=== PATIENT | female | born 1945 | race Native Hawaiian/Other Pacific Islander ===

== ENCOUNTER 2016-10-10 08:27 | Outpatient (CLI) | payer OTHER ==
[~2016-10-10 08:27] MED LIST: ACID REDUCER150 MG PO; ASPIRIN ADULT L81 MG PO; HYZAAR1 TA1 PO; LEVO0.0218 PO; LEVO0.0529 PO
[2016-10-10 08:43] LABS: PLATELET COUNT 249 K/uL (152-353)
[2016-10-10 09:02] LABS: POTASSIUM 3.7 mmol/L (3.6-5.2)
== END 2016-10-10 19:58 | disposition home or self-care (01) ==
LOC: LABW 08:27
PROVIDERS: Nurse Practitioner
DX: K21.9 Gastro-esophageal reflux disease without esophagitis (principal); R53.83 Other fatigue; E03.8 Other specified hypothyroidism; E55.9 Vitamin D deficiency, unspecified
CPT/HCPCS: 36415; 80053; 80061; 84443; 85027

== ENCOUNTER 2017-03-10 07:58 | Outpatient (CLI) | payer OTHER ==
[2017-03-10 08:22] LABS: POTASSIUM 4.3 mmol/L (3.6-5.2)
== END 2017-03-10 19:08 | disposition home or self-care (01) ==
LOC: LABW 07:58
PROVIDERS: Internal Medicine Clinical Cardiac Electrophysiology
DX: I48.0 Paroxysmal atrial fibrillation (principal)
CPT/HCPCS: 36415; 80048

== ENCOUNTER 2017-05-19 08:16 | Outpatient (CLI) | payer OTHER ==
[2017-05-19 08:49] LABS: PLATELET COUNT 264 K/uL (152-353)
== END 2017-05-19 09:20 | disposition home or self-care (01) ==
LOC: LABW 08:16
PROVIDERS: Internal Medicine
DX: I10 Essential (primary) hypertension (principal); E03.8 Other specified hypothyroidism
CPT/HCPCS: 36415; 80053; 80061; 81000; 84439; 84443; 85027

== ENCOUNTER 2017-08-06 09:20 | Outpatient (CLI) | payer OTHER ==
[2017-08-06 09:48] LABS: PLATELET COUNT 269 K/uL (152-353)
[2017-08-06 09:55] LABS: POTASSIUM 4.2 mmol/L (3.6-5.2)
== END 2017-08-06 19:08 | disposition home or self-care (01) ==
LOC: LABW 09:20
PROVIDERS: Internal Medicine Nephrology
DX: N18.3 Chronic kidney disease, stage 3 (moderate) (principal); I12.9 Hypertensive chronic kidney disease with stage 1 through stage 4 chronic kidney disease, or unspecified chronic kidney disease; E03.9 Hypothyroidism, unspecified; N95.1 Menopausal and female climacteric states; K21.9 Gastro-esophageal reflux disease without esophagitis; M81.0 Age-related osteoporosis without current pathological fracture; G47.30 Sleep apnea, unspecified; I48.91 Unspecified atrial fibrillation
CPT/HCPCS: 36415; 80048; 82306; 83970; 84100; 85027

== ENCOUNTER 2017-08-17 11:36 | Outpatient (CLI) | payer OTHER | END 2017-08-17 12:40 | disposition home or self-care (01) | LOC: RAD 11:36 | DX: J40 Bronchitis, not specified as acute or chronic (principal); R68.83 Chills (without fever) ==

== ENCOUNTER 2017-09-22 09:15 | Outpatient (CLI) | payer OTHER | END 2017-09-22 19:03 | disposition home or self-care (01) | LOC: MAMMO 09:15 | DX: Z12.31 Encounter for screening mammogram for malignant neoplasm of breast (principal) ==

== ENCOUNTER 2017-11-07 20:32 | Emergency (ER) | payer OTHER ==
[~2017-11-07] VITALS: Ht 162.6 cm; Wt 90.7 kg
[2017-11-07 20:30] VITALS: TEMP 97.3
[2017-11-07 21:00] LABS: PLATELET COUNT 287 K/uL (152-353)
[2017-11-07] MEDS ORDERED: LEVO0.0723 PO (21:00)
[2017-11-07] MEDS ORDERED: HYZAAR1 TA1 PO (21:01)
[2017-11-07] MEDS ORDERED: ELIQUIS5 MG PO (21:02)
[2017-11-07] MEDS ORDERED: CARV12.5 PO (21:03)
[2017-11-07] MEDS ORDERED: PREVACID30 MG OR (21:03)
[2017-11-07] MEDS ORDERED: PANTOPRAZOLE 40MG TA PO (21:03)
[2017-11-07 21:36] LABS: PARTIAL THROMBOPLASTIN TIME 28.6 SECONDS (24.5-33.6)
[2017-11-07 23:58] VITALS: BP 129/80
== END 2017-11-08 00:06 | disposition home or self-care (01) ==
LOC: ED 20:32
DX: R07.89 Other chest pain (principal); I50.9 Heart failure, unspecified; Z98.890 Other specified postprocedural states; R00.0 Tachycardia, unspecified
CPT/HCPCS: 36415; 80053; 82550; 83880; 84484; 85027; 85610; 85730; 93005; 96365; 99284; J3490

== ENCOUNTER 2018-02-08 10:15 | Outpatient (CLI) | payer OTHER ==
[~2018-02-08 10:15] MED LIST changes: +CARV12.5 PO; +ELIQUIS5 MG PO; +LEVO0.0723 PO; +PANTOPRAZOLE 40MG TA PO; +PREVACID30 MG OR
[2018-02-08 11:15] LABS: PLATELET COUNT 253 K/uL (152-353)
[2018-02-08 11:26] LABS: POTASSIUM 4.1 mmol/L (3.6-5.2)
[2018-02-08 11:36] LABS: PARTIAL THROMBOPLASTIN TIME 27.5 SECONDS (24.5-33.6)
== END 2018-02-08 19:48 | disposition home or self-care (01) ==
LOC: LABW 10:15
PROVIDERS: Podiatrist
DX: Z01.810 Encounter for preprocedural cardiovascular examination (principal); Z01.811 Encounter for preprocedural respiratory examination; Z01.812 Encounter for preprocedural laboratory examination; Z51.81 Encounter for therapeutic drug level monitoring
CPT/HCPCS: 36415; 80053; 85002; 85027; 85610; 85730; 93005

== ENCOUNTER 2018-06-16 08:16 | Outpatient (CLI) | payer OTHER ==
[2018-06-16 08:35] LABS: PLATELET COUNT 215 K/uL (152-353)
[2018-06-16 09:12] LABS: POTASSIUM 4.5 mmol/L (3.6-5.2)
== END 2018-06-16 19:13 | disposition home or self-care (01) ==
LOC: LABW 08:16
PROVIDERS: Physician Assistant
DX: I10 Essential (primary) hypertension (principal); E03.8 Other specified hypothyroidism; Z79.899 Other long term (current) drug therapy; E55.9 Vitamin D deficiency, unspecified; Z00.00 Encounter for general adult medical examination without abnormal findings
CPT/HCPCS: 36415; 80053; 80061; 82306; 83036; 84439; 84443; 85027

== ENCOUNTER 2018-10-06 11:13 | Outpatient (CLI) | payer OTHER | END 2018-10-06 19:20 | disposition home or self-care (01) | LOC: MAMMO 11:13 | DX: Z12.31 Encounter for screening mammogram for malignant neoplasm of breast (principal) ==

== ENCOUNTER 2018-10-07 20:55 | Emergency (ER) | payer OTHER ==
[~2018-10-07] VITALS: Ht 162.6 cm; Wt 96.2 kg
[2018-10-07 22:27] VITALS: BP 146/84; TEMP 98.5
== END 2018-10-07 22:27 | disposition home or self-care (01) ==
LOC: ED 20:55
DX: S92.355A Nondisplaced fracture of fifth metatarsal bone, left foot, initial encounter for closed fracture (principal); W10.8XXA Fall (on) (from) other stairs and steps, initial encounter; Y92.89 Other specified places as the place of occurrence of the external cause
CPT/HCPCS: 99283